=== PATIENT | female | born 1945 | race Caucasian/White ===

== ENCOUNTER 2017-02-09 11:55 | Emergency (ER) | payer MEDICARE, OTHER ==
[2017-02-09] MEDS ORDERED: Sodium Chloride 0.9% 10 ML Syringe FLUSH PRN (11:59)
[2017-02-09] MEDS: Labetalol 100 MG/20 ML MDV IVPUSH ONE ×2 (12:11→12:25)
--- NOTE | 2017-02-09 12:14 | CT ---
Head CT Technique: Multiple axial sections through the brain were obtained. Intravenous contrast was not utilized. Comparison: Previous head CT study of 12/31/11. Findings: Large basal ganglia hemorrhage is identified on the left side. This hemorrhage measures approximately 4.2 cm x 2.8 cm. This causes mild mass effect upon the left lateral ventricle and midline shift by about 4.5 mm. Diminished density is noted within the periventricular and subcortical white matter compatible with small vessel ischemic demyelination change. No other areas of intracranial hemorrhage are seen. Bone window settings were reviewed which shows no acute calvarial abnormality. Slight mucosal thickening seen within the left frontal sinus which is likely incidental. Impression: 1. Large left basal ganglia hemorrhage causing mass effect upon the lateral ventricle and midline shift by about 4.5 mm. 2. Other senescent change as described above. Diagnostic code #5
--- NOTE | 2017-02-09 12:21 | EDM.PDOC ---
ED HPI GENERAL MEDICAL PROBLEM - General Chief Complaint: Neurological Problem Time Seen by Provider: 02/09/17 11:58 Source of Information: Reports: Patient, EMS, RN Notes Reviewed - History of Present Illness INITIAL COMMENTS - FREE TEXT/NARRATIVE: 71-year-old female has been brought in by [place] [facility] with right-sided paralysis of the right upper extremity, weakness of the right lower extremity. She was found in a bathroom I believe at a truck stop at [place] lying on the floor. Due to symptoms of right-sided weakness and possible altered mental status EMS was called. Upon arrival patient was awake, slightly slurred speech, inability to move the right hand or right upper extremity, weakness right lower extremity. She was last known to be well about 2 hours ago. she does have known history of hypertension, insulin-dependent diabetes and also history of seizure disorder. Is on medication for that. She has not had a seizure for a long time. On arrival to ED she does answer questions, states that she does remember going into the bathroom. she is not really able to explain what happened. she denies headache nausea or vomiting. She denies neck or upper back discomfort. She denies chest pain or difficulty breathing. This was called as a stroke alert upon arrival to ED. Headache Pain Score (Numeric/FACES): 5 - Related Data Allergies Allergy/AdvReac Type Severity Reaction Status Date / Time betablockers Allergy throat Uncoded 07/01/16 15:57 closes Home Meds: Home Meds Fenofibric Acid (Choline) [Trilipix] 45 mg PO DAILY 03/08/14 [History] Insulin Glarg,Human.Rec.Analog [Lantus] 51 units SQ BID 03/08/14 [History] Insulin Lispro [HumaLOG] 25 units SQ ASDIRECTED 03/08/14 [History] carBAMazepine [TEGretol XR] 400 mg PO BID 03/08/14 [History] metFORMIN [Glucophage XR] 250 mg PO BID 03/08/14 [History] Aspirin [Halfprin] 81 mg PO DAILY 08/09/14 [History] Cholecalciferol (Vitamin D3) [Vitamin D] 2,000 unit PO DAILY 08/09/14 [History] Docusate Sodium [Stool Softener] 100 mg PO BID 08/09/14 [History] Fish Oil/[place]-3 Fatty Acids [Fish Oil] 1,200 mg PO BID 08/09/14 [History] Pravastatin [Pravachol] 40 mg PO DAILY 08/09/14 [History] Ranitidine [Zantac] 75 mg PO BID 08/09/14 [History] Saxagliptin [Onglyza] 5 mg PO DAILY 08/09/14 [History] Atenolol/Chlorthalidone [Atenolol-Chlorthalidone 100-25] 1 tab PO DAILY [History] Isosorb Dinit/Hydralazine HCl [Bidil Tablet] 1 tab PO BID 06/25/15 [History] EPINEPHrine [Epipen] 0.3 mg IM ONETIME PRN 04/23/16 [History] Famotidine [Pepcid] 40 mg PO DAILY PRN 04/23/16 [History] Benzonatate [Tessalon Perles] 200 mg PO TID PRN #30 cap 05/25/16 [Rx] Doxycycline [Vibramycin] 100 mg PO BID #20 cap 05/25/16 [Rx] sitaGLIPtin Phosphate [Januvia] 1 tab PO DAILY 05/25/16 [History] Azithromycin [Zithromax] 250 mg PO DAILY #6 tablet 07/01/16 [Rx] Past Medical History HEENT History: Reports: Impaired Vision Other HEENT History: glasses Cardiovascular History: Reports: High Cholesterol, Hypertension Respiratory History: Reports: Bronchitis, Recurrent Gastrointestinal History: Reports: GERD Genitourinary History: Reports: Urinary Incontinence Other Genitourinary History: protein in urine Other OB/BYN History: grav 2 para 2 Neurological History: Reports: Seizure Psychiatric History: Reports: Anxiety Endocrine/Metabolic History: Reports: Diabetes, Type II, Obesity/BMI 30+ Oncologic (Cancer) History: Reports: Other (See Below) Other Oncologic History: benign lump removed from breast Dermatologic History: Reports: Psoriasis - Infectious Disease History Infectious Disease History: Reports: Chicken Pox, Measles - Past Surgical History HEENT Surgical History: Reports: Cataract Surgery, Oral Surgery Female Surgical History: Reports: Section, D&C, Tubal Ligation Neurological Surgical History: Reports: Lumbar Spine Musculoskeletal Surgical History: Reports: Other (See Below) Social & Family History - Family History Cardiac: Reports: [place] Oncologic: Reports: Lung, Other (See Below) Other Oncologic Family History: stomach - Tobacco Use Smoking Status *Q: Former Smoker Years of Tobacco use: 10 Packs/Tins Daily: 1 Used Tobacco, but Quit: Yes Month Tobacco Last Used: 40 years ago Second Hand Smoke Exposure: No - Caffeine Use Caffeine Use: Reports: Coffee - Alcohol Use Days Per Week of Alcohol Use: 0 - Recreational Drug Use Recreational Drug Use: No - Living Situation & Occupation Living situation: Reports: , with Spouse Occupation: Retired ED ROS GENERAL - Review of Systems Review Of Systems: See Below Constitutional: Denies: Fever, Chills, Diaphoresis HEENT: Reports: Vision Change (EMS states that her vision is decreased both eyes ). Denies: Throat Pain Respiratory: Denies: Shortness of Breath, Pleuritic Chest Pain Cardiovascular: Denies: Chest Pain GI/Abdominal: Denies: Abdominal Pain, Nausea, Vomiting Musculoskeletal: Denies: Neck Pain, Shoulder Pain, Arm Pain, Back Pain, Joint Pain Skin: Denies: Bruising Neurological: Reports: Dizziness, Numbness (right hand and distalo arm), Weakness (complete paralysis right upper extremity, weakness right lower extremity), Other (no sensation to touch right hand, distal upper extremity, good sensation to touch right lower extremity, ). Denies: Headache ED EXAM, NEURO - Physical Exam Exam: See Below General Appearance: Other (patient is awake, eyes are noted to be deviated strongly to the left) Eye Exam: Bilateral Eye: PERRL, Other (eyes are deviated strongly to the left, visual acuity grossly decreased, difficulty counting fingers or even visualizing my hand at time of initial exam) Ears: Normal External Exam Nose: Normal Inspection Throat/Mouth: Normal Inspection Head Exam: Atraumatic, Other (there is no sign of bruising or swelling to the head or face). No: Facial Swelling, Facial Tenderness Neck: Supple, Full Range of Motion. No: Tender Lateral, Tender Midline Respiratory/Chest: No Respiratory Distress, Lungs Clear, Normal Breath Sounds Cardiovascular: Regular Rate, Rhythm GI/Abdominal: Soft, Non-Tender Neurological: Alert, Other (patient has complete paralysis of the right hand and remainder of right upper extremity., There is weakness of the right lower extremity but she does withdraw the foot to plantar stimulation, cannot raise the foot and leg off the cot, no weakness on the left, no sensation to touch for the right hand or remainder of her right upper extremity) EKG INTERPRETATION EKG Date: 02/09/17 Rhythm: NSR [place]: Normal P-Wave: Present QRS: Normal ST-T: Other (T-wave inversion V5 and V6) Course - Vital Signs Last Recorded V/S: Last Vital Signs Temp 98.7 F 02/09/17 12:01 Pulse 71 02/09/17 12:25 Resp 16 02/09/17 12:01 BP 171/95 H 02/09/17 12:25 Pulse Ox 96 02/09/17 12:11 - Orders/Labs/Meds Orders: Active Orders 24 hr Category Date Time Status EKG 12 Lead [EKG Documentation Completion] [RC] STAT Care 02/09/17 11:59 Active EKG 12 Lead [EKG Documentation Completion] [RC] STAT Care 02/09/17 12:00 Inactive Insert Grijalva Catheter [Insert Urinary Catheter] [OM.PC] Care 02/09/17 12:20 Ordered Stat Oxygen Therapy [RC] ASDIRECTED Care 02/09/17 12:00 Active Peripheral IV Care [RC] . DIRECTED Care 02/09/17 12:00 Active Urinary Catheter Assessment [RC] ASDIRECTED Care 02/09/17 12:20 Active PTT,PARTIAL THROMBOPLSTIN TIME [COAG] Stat Lab 02/09/17 12:04 Received Sodium Chloride 0.9% [Saline Flush] Med 02/09/17 11:59 Active 10 ml FLUSH ASDIRECTED PRN Peripheral IV Insertion Adult [OM.PC] Stat Oth 02/09/17 12:00 Ordered Medication Orders Sodium Chloride (Saline Flush) 10 ml FLUSH ASDIRECTED PRN PRN Reason: Keep Vein Open Last Admin: 02/09/17 12:26 Dose: 10 ml Labs: Laboratory Tests 02/09/17 02/09/17 02/09/17 Range/Units 12:04 12:04 12:04 WBC 9.75 (3.98-10.04) K/mm3 RBC 4.49 (3.98-5.22) M/mm3 Hgb 13.7 (11.2-15.7) gm/L Hct 39.7 (34.1-44.9) % MCV 88.4 (79.4-94.8) fl MCH 30.5 (25.6-32.2) pg MCHC 34.5 (32.2-35.5) g/dl RDW Std Deviation 40.8 (36.4-46.3) fL Plt Count 201 (182-369) K/mm3 MPV 9.2 L (9.4-12.3) fl Neut % (Auto) 65.0 (34.0-71.1) % Lymph % (Auto) 25.2 (19.3-51.7) % [place] % (Auto) 7.0 (4.7-12.5) % Eos % (Auto) 2.4 (0.7-5.8) Baso % (Auto) 0.2 (0.1-1.2) % Neut # (Auto) 6.34 H (1.56-6.13) K/mm3 Lymph # (Auto) 2.46 (1.18-3.74) K/mm3 [place] # (Auto) 0.68 H (0.24-0.36) K/mm3 Eos # (Auto) 0.23 (0.04-0.36) K/mm3 Baso # (Auto) 0.02 (0.01-0.08) K/mm3 PT 10.6 (8.0-13.0) SECONDS INR 0.97 Sodium 145 (136-145) mEq/L Potassium 3.1 L (3.5-5.1) mEq/L Chloride 106 (98-107) mEq/L Carbon Dioxide 31 (21-32) mEq/L Anion Gap 11.1 (5-15) BUN 17 (7-18) mg/dL Creatinine 1.1 H (0.55-1.02) mg/dL Est Cr Clr Drug Dosing 48.88 mL/min Estimated GFR (MDRD) 49 (>60) mL/min BUN/Creatinine Ratio 15.5 (14-18) Glucose 121 H (80-115) mg/dL Calcium 8.6 (8.5-10.1) mg/dL Total Bilirubin 0.3 (0.2-1.0) mg/dL AST 17 (15-37) U/L ALT 20 (14-59) U/L Alkaline Phosphatase 84 (46-116) U/L Total Protein 7.3 (6.4-8.2) g/dl Albumin 2.8 L (3.4-5.0) g/dl Globulin 4.5 gm/dL Albumin/Globulin Ratio 0.6 L (1-2) Meds: Medications Generic Name Dose Route Start Last Admin Trade Name Freq PRN Reason Stop Dose Admin Sodium Chloride 10 ml 02/09/17 11:59 02/09/17 12:26 Saline Flush FLUSH 10 ml ASDIRECTED PRN Administration Keep Vein Open Discontinued Medications Generic Name Dose Route Start Last Admin Trade Name Freq PRN Reason Stop Dose Admin Labetalol HCl 20 mg 02/09/17 12:08 02/09/17 12:25 Normodyne IVPUSH 02/09/17 12:09 10 mg ONETIME ONE Administration Protocol - Re-Assessments/Exams Free Text/Narrative Re-Assessment/Exam: 02/09/17 12:20. as noted this was called as a stroke alert. patient was very quickly sent to CT after initial assessment. Unfortunately CT does show an area of fairly large hemorrhage left basal ganglia measuring 4.2 x 2.8 cm there is some mild mass effect upon the left lateral ventricle and midline shift of about 4.5 mm. See Radiology report for details. Because this is a hemorrhagic stroke we are going to transfer her to [facility] as quickly as possible for possible intervention. We will be sending her by [facility]. Her initial blood pressure was high in the 195 over 1107 range, we have given 20 mg labetalol IV. Current blood pressure 182/92. 02/09/17 12:30. discussed with Dr Coyle, Neurosurgeon travel accommodation inspector for [facility] who does accept patient in transfer. He is asking that EMS continue to work with labetalol to titrate her blood pressure toward the 140-150 systolic range. That information has been relayed to them. EKG did show sinus rhythm, no ectopy. Her med list shows that she is on daily aspirin. No known other blood thinner type medication. she is transferred out after spending about 40 minutes in our ED. Critical care time 40 minutes. This includes initial evaluation of patient, ordering of appropriate labs CT and other diagnostics. Frequent repeat reassessment of patient, interpretation of labs, EKG,. Review of head CT, review of radiologist report, transfer arrangements, discussion with patient and EMS. Departure - Departure Time of Disposition: 12:35 Disposition: DC/Tfer to Acute Hospital 02 Clinical Impression: Hemorrhagic stroke - Discharge Information Referrals: Provider,Unknown [Primary Care Provider] - Forms: ED Department Discharge - My Orders Last 24 Hours: My Active Orders 02/09/17 11:59 EKG 12 Lead [EKG Documentation Completion] [RC] STAT Sodium Chloride 0.9% [Saline Flush] 10 ml FLUSH ASDIRECTED PRN 02/09/17 12:00 EKG 12 Lead [EKG Documentation Completion] [RC] STAT Oxygen Therapy [RC] ASDIRECTED Peripheral IV Care [RC] . DIRECTED Peripheral IV Insertion Adult [OM.PC] Stat 02/09/17 12:04 PTT,PARTIAL THROMBOPLSTIN TIME [COAG] Stat 02/09/17 12:20 Insert Grijalva Catheter [Insert Urinary Catheter] [OM.PC] Stat Urinary Catheter Assessment [RC] ASDIRECTED - Assessment/Plan Last 24 Hours: My Active Orders 02/09/17 11:59 EKG 12 Lead [EKG Documentation Completion] [RC] STAT Sodium Chloride 0.9% [Saline Flush] 10 ml FLUSH ASDIRECTED PRN 02/09/17 12:00 EKG 12 Lead [EKG Documentation Completion] [RC] STAT Oxygen Therapy [RC] ASDIRECTED Peripheral IV Care [RC] . DIRECTED Peripheral IV Insertion Adult [OM.PC] Stat 02/09/17 12:04 PTT,PARTIAL THROMBOPLSTIN TIME [COAG] Stat 02/09/17 12:20 Insert Grijalva Catheter [Insert Urinary Catheter] [OM.PC] Stat Urinary Catheter Assessment [RC] ASDIRECTED
[2017-02-09 12:25] VITALS: BP 171/95
== END 2017-02-09 12:33 ==
LOC: JD.ED 11:55
DX: I62.9 Nontraumatic intracranial hemorrhage, unspecified (principal); G81.91 Hemiplegia, unspecified affecting right dominant side; I10 Essential (primary) hypertension; E78.00 Pure hypercholesterolemia, unspecified; K21.9 Gastro-esophageal reflux disease without esophagitis; F41.9 Anxiety disorder, unspecified; E11.9 Type 2 diabetes mellitus without complications; G40.909 Epilepsy, unspecified, not intractable, without status epilepticus; E66.9 Obesity, unspecified; L40.9 Psoriasis, unspecified; Z98.49 Cataract extraction status, unspecified eye; Z98.51 Tubal ligation status; Z87.891 Personal history of nicotine dependence; Z79.4 Long term (current) use of insulin; Z79.82 Long term (current) use of aspirin; Z79.899 Other long term (current) drug therapy; Z79.2 Long term (current) use of antibiotics; Z88.8 Allergy status to other drugs, medicaments and biological substances; Z68.34 Body mass index [BMI] 34.0-34.9, adult
CPT/HCPCS: 36415; 51702; 70450; 80053; 85025; 85610; 85730; 93005; 96374; 99285; J7050; 82962; 99291